=== PATIENT | male | born 1995 | race Caucasian/White ===

== ENCOUNTER 2020-10-22 17:17 | Emergency (ER) | payer OTHER ==
[2020-10-22 18:14] VITALS: BP 140/84; PULSE 78; RESP 18; TEMP 98.4
[2020-10-22] MEDS ORDERED: RABIES VACCINE (PCEC) 2.5 UNIT KIT IM ONE (18:50)
--- NOTE | 2020-10-22 18:59 | ED ---
General Adult HPI - General Source: patient, RN notes reviewed Mode of arrival: ambulatory Limitations: no limitations - History of Present Illness -: days(s) (13) Severity scale (1-10): 0 Associated Symptoms: denies other symptoms Treatments Prior to Arrival: none <Johnny Nicolas - Last Filed: 10/22/20 23:06> <Clair Villafana - Last Filed: 10/26/20 14:26> - General Chief complaint: Recheck/Abnormal Lab/Rx Stated complaint: exposure to bats Time Seen by Provider: 10/22/20 18:39 - History of Present Illness Initial comments: 25-year-old male patient alert and oriented 4, presents to the emergency room with family member after being exposed to a bat in the home. On October 09 they had an fire extinguisher repairer come to the house to capture the bats. Only one was captured and it was tested and was negative for rabies however they were suggested to get the rabies vaccine. (Johnny Nicolas) - Related Data Allergies Allergy/AdvReac Type Severity Reaction Status Date / Time No Known Allergies Allergy Verified 10/25/20 08:20 Review of Systems ROS Other: All systems not noted in ROS Statement are negative. <Johnny Nicolas - Last Filed: 10/22/20 23:06> ROS Other: All systems not noted in ROS Statement are negative. <Clair Villafana - Last Filed: 10/26/20 14:26> ROS Statement: Those systems with pertinent positive or pertinent negative responses have been documented in the HPI. Past Medical History Additional Past Medical History / Comment(s): season allergies History of Any Multi-Drug Resistant Organisms: None Reported Past Surgical History: No Surgical Hx Reported Past Psychological History: No Psychological Hx Reported Smoking Status: Never smoker Past Alcohol Use History: Occasional Past Drug Use History: None Reported <Johnny Nicolas - Last Filed: 10/22/20 23:06> General Exam Limitations: no limitations General appearance: alert, in no apparent distress Head exam: Present: atraumatic, normocephalic, normal inspection Eye exam: Present: normal appearance, PERRL, EOMI. Absent: scleral icterus, conjunctival injection, periorbital swelling ENT exam: Present: normal exam, normal oropharynx, mucous membranes moist Neck exam: Present: normal inspection, full ROM. Absent: tenderness, meningismus, lymphadenopathy Respiratory exam: Present: normal lung sounds bilaterally. Absent: respiratory distress, wheezes, rales, rhonchi, stridor Cardiovascular Exam: Present: regular rate, normal rhythm, normal heart sounds. Absent: systolic murmur, diastolic murmur, rubs, gallop, clicks GI/Abdominal exam: Present: soft, normal bowel sounds. Absent: distended, tenderness, guarding, rebound, rigid Back exam: Present: normal inspection, full ROM. Absent: tenderness, CVA tenderness (R), CVA tenderness (L), rash noted Neurological exam: Present: alert, oriented X3, CN II-XII intact Psychiatric exam: Present: normal affect, normal mood, anxious Skin exam: Present: warm, dry, intact, normal color. Absent: rash, cyanosis, diaphoretic <Johnny Nicolas - Last Filed: 10/22/20 23:06> Course Vital Signs 10/22/20 18:11 Temperature 98.4 F Pulse Rate 78 Respiratory 18 Rate Blood Pressure 140/84 O2 Sat by Pulse 99 Oximetry Medical Decision Making <Johnny Nicolas - Last Filed: 10/22/20 23:06> <Clair Villafana - Last Filed: 10/26/20 14:26> - Medical Decision Making Patient denies being bitten by the bat. He was told that they should be given vaccine anyway. Patient was given his first dose in the was written a prescription to have dose given on day 3,7 and 14. They were directed to return to the emergency room for these injections. Case discussed with Dr. Villafana (Johnny Nicolas) I was available for consultation in the emergency department. The history and physical exam were done by the midlevel provider. I was consulted for this patients care. I reviewed the case with the midlevel provider and based on their presentation of the patient, I agree with the assessment, medical decision making and plan of care as documented. Chart was dictated using [employer] dictation software. Attempts were made to correct any dictation errors however some typographical errors may persist. Patient was seen during a national state of emergency due to the Covid-19 pandemic. (Clair Villafana) Disposition Is patient prescribed a controlled substance at d/c from ED?: No Time of Disposition: 19:02 <Johnny Nicolas - Last Filed: 10/22/20 23:06> <BroderickClair Eris - Last Filed: 10/26/20 14:26> Clinical Impression: Need for rabies vaccination Disposition: HOME SELF-CARE Condition: Good Instructions (If sedation given, give patient instructions): Rabies Vaccine (ED) Additional Instructions: Directed to return to the emergency room with any new or worsening symptoms including fever, nausea or vomiting. Referrals: None,Stated [Primary Care Provider] - 1-2 days
== END 2020-10-22 19:43 | disposition home or self-care (01) ==
LOC: EC 17:17
DX: Z20.3 Contact with and (suspected) exposure to rabies (principal)
CPT/HCPCS: 90471; 90675; 99283